=== PATIENT | male | born 1970 | race Caucasian/White ===

== ENCOUNTER 2017-09-29 17:54 | Emergency (ER) | payer OTHER ==
[~2017-09-29] VITALS: Ht 172.7 cm; Wt 78.0 kg
[2017-09-29] MEDS ORDERED: ONDANSETRON PF 4 MG/2 ML VIAL. ONE (18:15)
--- NOTE | 2017-09-29 18:21 | ED.ADGEN ---
Adult General Chief Complaint Chief Complaint " I don't know..'I was just working on my computer .. and got this pain behind my Rt eye.. I ve had optic nerve neuritis before.. 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 Pt. denies trauma. Recent travel or specific ill contacts. Up to date with vaccinations. Pt. has had previous episode of Rt. optic nerve neuritis when station in [place]. Pt. at that time treated with high dose steroids. Pt. was hospitalized because of MERS exposure at same time. No visual acuity changes. No limbus injection. No field loss. No consensual photophobia. No visual changes. Limited fundus exam. Pt. reports no collateral inflammatory disorder found for his right optic neuritis on his workup in [facility]. Treatment that time consisted of high-dose steroids. Review of Systems Review of Systems Constitutional: Denies fever or chills [] Eyes: Denies change in visual acuity, redness, . Complaints of Rt. eye pain [] HENT: Denies nasal congestion or sore throat [] Respiratory: Denies cough or shortness of breath [] Cardiovascular: No additional information not addressed in HPI [] GI: Denies abdominal pain, nausea, vomiting, bloody stools or diarrhea [] : Denies dysuria or hematuria [] Musculoskeletal: Denies back pain or joint pain [] Integument: Denies rash or skin lesions [] Neurologic: Denies headache, focal weakness or sensory changes [] Endocrine: Denies polyuria or polydipsia [] All other systems were reviewed and found to be within normal limits, except as documented in this note. Family History Family History Non-contributory Current Medications Current Medications Current Medications Medications (Trade) Dose Ordered Sig/Natalie Start Time Stop Time Status Last Admin Dose Admin Aspirin (Simon Aspirin) 325 mg 1X ONCE 09/29/17 22:15 09/29/17 22:15 DC 09/29/17 22:05 325 MG Ceftriaxone Sodium 1 gm/ Sodium Chloride 50 ml @ 100 mls/hr 1X ONCE 09/29/17 21:45 09/29/17 22:14 UNV Ceftriaxone Sodium (Rocephin) 1 gm 1X ONCE 09/29/17 22:00 09/29/17 22:01 DC 09/29/17 21:56 1 GM Enoxaparin Sodium (Lovenox 80mg Syringe) 80 mg 1X ONCE 09/29/17 22:15 09/29/17 22:15 DC 09/29/17 22:12 80 MG Info (Do NOT chart on this entry -- for MONITORING) 1 each PRN DAILY PRN 09/29/17 19:15 09/29/17 22:15 DC Iohexol (Omnipaque 300 Mg/ml) 75 ml 1X ONCE 09/29/17 19:30 09/29/17 19:31 DC 09/29/17 19:49 75 ML Ketorolac Tromethamine (Toradol) 30 mg 1X ONCE 09/29/17 21:00 09/29/17 21:01 DC 09/29/17 20:38 30 MG Methylprednisolone Sodium Succinate (SOLU-Medrol 125MG VIAL) 125 mg 1X ONCE 09/29/17 22:00 09/29/17 22:01 DC 09/29/17 21:56 125 MG Ondansetron HCl (Zofran) 8 mg 1X ONCE 09/29/17 18:30 09/29/17 18:36 DC 09/29/17 18:16 8 MG Potassium Chloride (KCl Oral Soln) 40 meq 1X ONCE 09/29/17 20:15 09/29/17 20:16 DC 09/29/17 20:36 40 MEQ Sodium Chloride 1,000 ml @ 1,000 mls/hr Q1H 09/29/17 18:22 09/29/17 19:21 DC 09/29/17 18:22 1,000 MLS/HR See Nursing for home meds Allergies Allergies Allergies Coded Allergies Type Severity Reaction Last Updated Verified No Known Drug Allergies 09/29/17 No Physical Exam Physical Exam Constitutional: Well developed, well nourished, mild distress, non-toxic appearance. [] HENT: Normocephalic, atraumatic, bilateral external ears normal, oropharynx moist, no oral exudates, nose normal. []No temperol art. tenderness. Eyes: PERRLA, EOMI, conjunctiva normal, no discharge. Pain behind Rt. eye- exam as per HPI Neck: Normal range of motion, no tenderness, supple, no stridor. [] Cardiovascular:Heart rate regular rhythm, no murmur [] Lungs & Thorax: Bilateral breath sounds clear to auscultation [] Abdomen: Bowel sounds normal, soft, no tenderness, no masses, no pulsatile masses. [] Skin: Warm, dry, no erythema, no rash. [] Back: No tenderness, no CVA tenderness. [] Extremities: No tenderness, no cyanosis, no clubbing, ROM intact, no edema. [] No cording appreciated. Neurologic: Alert and oriented X 3, normal motor function, normal sensory function, no focal deficits noted. [] Psychologic: Affect normal, judgement normal, mood normal. [] Current Patient Data Vital Signs Vital Signs Date Time Temp Pulse Resp B/P (MAP) Pulse Ox O2 Delivery O2 Flow Rate FiO2 09/29/17 22:05 58 18 143/76 (98) 95 Room Air 09/29/17 18:00 98.0 Lab Results Laboratory Tests Test 09/29/17 18:07 09/29/17 19:56 White Blood Count 4.6 x10^3/uL (4.0-11.0) Red Blood Count 5.10 x10^6/uL (4.30-5.70) Hemoglobin 15.6 g/dL (13.0-17.5) Hematocrit 44.9 % (39.0-53.0) Mean Corpuscular Volume 88 fL (79-100) Mean Corpuscular Hemoglobin 31 pg (25-35) Mean Corpuscular Hemoglobin Concent 35 g/dL (31-37) Red Cell Distribution Width 13.1 % (11.5-14.5) Platelet Count 159 x10^3/uL (140-400) Neutrophils (%) (Auto) 60 % (31-73) Lymphocytes (%) (Auto) 30 % (24-48) Monocytes (%) (Auto) 8 % (0-9) Eosinophils (%) (Auto) 1 % (0-3) Basophils (%) (Auto) 1 % (0-3) Neutrophils # (Auto) 2.7 x10^3uL (1.8-7.7) Lymphocytes # (Auto) 1.4 x10^3/uL (1.0-4.8) Monocytes # (Auto) 0.4 x10^3/uL (0.0-1.1) Eosinophils # (Auto) 0.1 x10^3/uL (0.0-0.7) Basophils # (Auto) 0.0 x10^3/uL (0.0-0.2) Erythrocyte Sedimentation Rate 2 (0-15) Prothrombin Time 10.9 SEC (9.4-11.4) Prothrombin Time INR 1.1 (0.9-1.1) PTT 25 SEC (23-33) D-Dimer (Scarlett) 1.21 mg/L (0.00-0.50) H Sodium Level 141 mmol/L (136-145) Potassium Level 3.2 mmol/L (3.5-5.1) L Chloride Level 102 mmol/L (98-107) Carbon Dioxide Level 26 mmol/L (21-32) Anion Gap 13 (6-14) Blood Urea Nitrogen 17 mg/dL (8-26) Creatinine 1.1 mg/dL (0.7-1.3) Estimated GFR (Cockcroft-Gault) 72.4 Glucose Level 118 mg/dL (70-99) H Calcium Level 9.1 mg/dL (8.5-10.1) Magnesium Level 2.0 mg/dL (1.8-2.4) Total Bilirubin 1.2 mg/dL (0.2-1.0) H Direct Bilirubin 0.3 mg/dL (0.0-0.2) H Aspartate Amino Transferase (AST) 39 U/L (15-37) H Alanine Aminotransferase (ALT) 122 U/L (16-63) H Alkaline Phosphatase 93 U/L (46-116) Creatine Kinase 195 U/L (39-308) Creatine Kinase MB (Mass) 0.7 ng/mL (0.0-3.6) Creatine Kinase MB Relative Index 0.4 % (0-4) Troponin I Quantitative < 0.017 ng/mL (0-0.055) C-Reactive Protein 2.1 mg/L (0-3.3) SU-Dmc-Y-Type Natriuretic Peptide 7 pg/mL (0-124) Total Protein 7.8 g/dL (6.4-8.2) Albumin 4.4 g/dL (3.4-5.0) Lipase 180 U/L (73-393) Urine Collection Type Unknown Urine Color Yellow Urine Clarity Clear Urine pH 7.5 Urine Specific Wheatcroft 1.015 Urine Protein Neg (NEG-TRACE) Urine Glucose (UA) Neg mg/dL (NEG) Urine Ketones (Stick) 80 mg/dL (NEG) Urine Blood Neg (NEG) Urine Nitrite Neg (NEG) Urine Bilirubin Neg (NEG) Urine Urobilinogen Dipstick 1 mg/dL (0.2 mg/dL) Urine Leukocyte Esterase Neg (NEG) Urine RBC Rare /HPF (0-2) Urine WBC Occ /HPF (0-4) Urine Squamous Epithelial Cells Few /LPF Urine Bacteria 0 /HPF (0-FEW) Urine Mucus Slight /LPF Urine Opiates Screen Neg (NEG) Urine Methadone Screen Neg (NEG) Urine Barbiturates Neg (NEG) Urine Phencyclidine Screen Neg (NEG) Urine Amphetamine/Methamphetamine Neg (NEG) Urine Benzodiazepines Screen Neg (NEG) Urine Cocaine Screen Neg (NEG) Urine Cannabinoids Screen Neg (NEG) Urine Ethyl Alcohol Neg (NEG) EKG EKG [] Radiology/Procedures Radiology/Procedures CT head and orbit shows no acute mass, edema, shift, bleed, or fracture. No findings of post orbit mass. Does have findings of chronic sinusitis. See formal report when available.[] Course & Med Decision Making Course & Med Decision Making Pertinent Labs and Imaging studies reviewed. (See chart for details). Follow up with Opth. in AM. Take Amoxicillin 500 tid. Return if any concerns. See [facility] in AM. Must get ophthalmology exam in a.m. Take a daily baby aspirin. Take Zofran as needed for nausea and vomiting. Follow-up pending labs such as hepatitis panel. If unable to get in to ophthalmology at [facility] tomorrow morning must be seen by supervisor [facility]-referral given to Dr. Humphries- for follow up. Likely holliday of acute optic neuritis is low, with normal sed. rate and CRP. But still need formal fundus dilated exam. [] Final Impression Final Impression 1. Rt. eye pain[] 2. Hypokalemia 3. Elevated D-dimer 4. Elevated Paulo, LFTs 5. Maxillary Sinusitis Problems: Dragon Disclaimer Dragon Disclaimer This electronic medical record was generated, in whole or in part, using a voice recognition dictation system. REGINA BHANDARI MD Sep 29, 2017 18:21
[2017-09-29] MEDS ORDERED: IV NORMAL SALINE 1,000ML 1,000 ML IV SCH (18:22)
[2017-09-29] MEDS ORDERED: ONDANSETRON PF 4 MG/2 ML VIAL. IV ONE (18:30)
--- NOTE | 2017-09-29 18:39 | EKG ---
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
[2017-09-29 18:47] LABS: BASO % 1 % (0-3); EOS # 0.1 x10^3/uL (0.0-0.7); EOS % 1 % (0-3); HEMATOCRIT 44.9 % (39.0-53.0); HEMOGLOBIN 15.6 g/dL (13.0-17.5); LYMPH # 1.4 x10^3/uL (1.0-4.8); LYMPH % 30 % (24-48); MEAN CORPUSCULAR HEMOGLOBIN 31 pg (25-35); MEAN CORPUSCULAR HGB CONC 35 g/dL (31-37); MEAN CORPUSCULAR VOLUME 88 fL (79-100); MONO # 0.4 x10^3/uL (0.0-1.1); MONO % 8 % (0-9); NEUT # 2.7 x10^3uL (1.8-7.7); NEUT % 60 % (31-73); PLATELET COUNT 159 x10^3/uL (140-400); RED CELL DISTRIBUTION WIDTH 13.1 % (11.5-14.5); WHITE BLOOD COUNT 4.6 x10^3/uL (4.0-11.0)
[2017-09-29] MEDS ORDERED: CONTRAST GIVEN MC PRN (19:15)
[2017-09-29 19:25] LABS: ALBUMIN 4.4 g/dL (3.4-5.0); C REACTIVE PROTEIN 2.1 mg/L (0-3.3); CALCIUM 9.1 mg/dL (8.5-10.1); CREATININE 1.1 mg/dL (0.7-1.3); DIRECT BILIRUBIN 0.3 mg/dL (0.0-0.2); GFR 72.4; POTASSIUM 3.2 mmol/L (3.5-5.1); TOTAL BILIRUBIN 1.2 mg/dL (0.2-1.0); TOTAL PROTEIN 7.8 g/dL (6.4-8.2)
[2017-09-29] MEDS ORDERED: IOHEXOL 300 MG/ML 75 ML VIAL. IV ONE (19:30)
[2017-09-29 20:07] LABS: SEDIMENTATION RATE 2 (0-15)
[2017-09-29] MEDS ORDERED: POTASSIUM CHLORIDE 20 MEQ/15 ML ORAL LIQUID. PO ONE (20:15)
--- NOTE | 2017-09-29 20:22 | RAD ---
Exam performed: CT scan of the head without contrast. Date of Service: 09/29/2017. Comparison: None available. Clinical History: Headache and pain and pressure behind right eye, sensitivity to light, nausea and vomiting. Technique: Helical acquisitions are obtained from the foramen magnum to the vertex without intravenous administration of contrast. Findings: The ventricles are midline without evidence of dilatation. Normal ponce-white differentiation is maintained. There is no extra axial fluid collection, intraparenchymal hemorrhage or mass lesion. The visualized portions of the orbits, paranasal sinuses and the mastoid air cells appear clear. The calvarium is intact. Impression: 1. No acute intracranial process detected. PQRS Compliance Statement: One or more of the following individualized dose reduction techniques were utilized for this examination: 1. Automated exposure control 2. Adjustment of the mA and/or kV according to patient size 3. Use of iterative reconstruction technique Electronically signed by: Breanna Alves MD (09/29/2017 8:18 PM) [facility]
[2017-09-29 20:27] LABS: AMPHETAMINE/METHAMPHETAMINE NEG (NEG); BARBITURATES NEG (NEG); BENZODIAZEPINES NEG (NEG); CANNABINOIDS NEG (NEG); COCAINE NEG (NEG); METHADONE NEG (NEG); OPIATES NEG (NEG); PHENCYCLIDINE NEG (NEG)
[2017-09-29 20:39] LABS: BACTERIA,URINE 0 /HPF (0-FEW); BILIRUBIN,URINE NEG (NEG); CLARITY,URINE CLEAR; COLOR,URINE YELLOW; GLUCOSE,URINE NEG (NEG); NITRITE,URINE NEG (NEG); RBC,URINE RARE /HPF (0-2); SQUAMOUS EPITHELIAL CELL,UR FEW /LPF; UROBILINOGEN,URINE 1 mg/dL (0.2 mg/dL); WBC,URINE OCC /HPF (0-4)
[2017-09-29] MEDS ORDERED: KETOROLAC 30 MG/ML VIAL. IV ONE (21:00)
--- NOTE | 2017-09-29 21:34 | RAD ---
Exam performed: CT orbits with contrast. Indication: Headache and pain and pressure behind the right eye, light sensitivity, history of neuritis, nausea and vomiting. Date of service: 09/29/2017,Comparison: None available Technique: Contiguous acquisitions are obtained through the orbits during intravenous administration of 75 cc of Omnipaque 300. Sagittal and coronal reformatted images are obtained and reviewed. Findings: The bony orbital margins and the intraocular contents are bilaterally symmetric and unremarkable. No abnormal enhancing lesions are seen. Normal aeration of both frontal, ethmoid, sphenoid and maxillary sinuses is seen. Mild mucoperiosteal thickening involving the left maxillary sinus is noted. Both ostiomeatal complexes are preserved. Nasal bones and zygomatic arches are preserved.No abnormal fluid collections or hematoma formation seen. The visualized portion of the brain is normal. Impression: 1. No acute abnormality seen in the orbits to account for patient's symptoms of pain and pressure behind right eye. 2. Chronic left maxillary sinus disease. PQRS Compliance Statement: One or more of the following individualized dose reduction techniques were utilized for this examination: 1. Automated exposure control 2. Adjustment of the mA and/or kV according to patient size 3. Use of iterative reconstruction technique Electronically signed by: Breanna Alves MD (09/29/2017 9:30 PM) [facility]
[2017-09-29] MEDS ORDERED: HYDR-79 PO (21:54)
[2017-09-29] MEDS ORDERED: ONDA8TAB12 PO (21:54)
[2017-09-29] MEDS ORDERED: ASPI81TA50 PO (21:54)
[2017-09-29] MEDS ORDERED: AMOX500C PO (21:54)
[2017-09-29] MEDS ORDERED: PRED50TA PO (21:54)
[2017-09-29] MEDS ORDERED: methylPREDNISolone SOD SUCC PF 125 MG/2 ML VIAL. IV ONE (22:00)
[2017-09-29] MEDS ORDERED: cefTRIAXone IV Push 1 GM VIAL. IVP ONE (22:00)
[2017-09-29 22:05] VITALS: BP 143/76
[2017-09-29] MEDS ORDERED: ENOXAPARIN ** NOTE DOSE ** SYRINGE SQ ONE (22:15)
[2017-09-29] MEDS ORDERED: ASPIRIN 325 MG TABLET PO ONE (22:15)
[2017-10-01 00:08] LABS: HCV ANTIBODY <0.1 s/co ratio (0.0-0.9); HEP A IGM ABDY Negative (Negative)
[2017-10-02 16:09] LABS: ANA INTERP Negative (.)
== END 2017-09-29 22:15 | disposition home or self-care (01) ==
LOC: ER 17:54
DX: H57.11 Ocular pain, right eye (principal); E87.6 Hypokalemia; R79.89 Other specified abnormal findings of blood chemistry; R79.1 Abnormal coagulation profile; E80.7 Disorder of bilirubin metabolism, unspecified; J32.0 Chronic maxillary sinusitis
CPT/HCPCS: 36415; 70450; 70481; 80048; 80074; 80076; 80307; 81001; 82553; 83690; 83735; 83880; 84443; 84484; 85025; 85379; 85610; 85651; 85730; 86038; 86140; 93005; 96361; 96372; 96374; 96375; 99285; J0696; J1650; J1885; J2405; J2930; Q9967; G0479; J7030